=== PATIENT | male | born 1990 | race Caucasian/White ===

== ENCOUNTER 2023-09-27 23:56 | Emergency (ER) | payer SELFPAY ==
[2023-09-28] MEDS ORDERED: Proparacaine 0.5% Opth 15 ML BOT ONE (00:32)
[2023-09-28] MEDS ORDERED: Fluorescein Opthalmic Strip ONE (00:32)
== END 2023-09-28 01:15 | disposition home or self-care (01) ==
LOC: MADERS 23:56
DX: S05.01XA Injury of conjunctiva and corneal abrasion without foreign body, right eye, initial encounter (principal); T15.91XA Foreign body on external eye, part unspecified, right eye, initial encounter; Z55.6 Problems related to health literacy; W26.8XXA Contact with other sharp object(s), not elsewhere classified, initial encounter
CPT/HCPCS: 99282